=== PATIENT | male | born 1935 | race Caucasian/White ===

== ENCOUNTER 2017-05-05 14:28 | Emergency (ER) | payer MEDICARE, BC ==
--- NOTE | 2017-05-05 15:12 | EDM.PDOC ---
ED HPI GENERAL MEDICAL PROBLEM - General Chief Complaint: Upper Extremity Injury/Pain Stated Complaint: RT SHOULDER Time Seen by Provider: 05/05/17 14:55 Source of Information: Reports: Patient History Limitations: Reports: Other (Poor historian, lack of old records) - History of Present Illness INITIAL COMMENTS - FREE TEXT/NARRATIVE: 81 yo male here with R shoulder pain that has been present for months. Was seen in the last 48 hrs at [facility] and was given a "cortisone shot" in that shoulder. He lifted something this mornng and had worsening of the pain, but it is feeling better now. Has pain meds, but cannot tell me what the name of this med is and does not have it with him. A call to his pharmacy reveals he is taking Tylenol #3 prn pain. Onset: Unknown/Unsure Duration: Week(s):, Chronic Location: Reports: Upper Extremity, Right Quality: Reports: Ache, Dull Severity: Moderate Improves with: Reports: Rest Worsens with: Reports: Movement Context: Reports: Other (pain chronic, uncertain working dx as patient is not able to tell me. ) Associated Symptoms: Reports: No Other Symptoms Treatments G[employer]: Reports: Other (see below) (Cortisone injection, pain meds( unknown at this point).) - Related Data Allergies Allergy/AdvReac Type Severity Reaction Status Date / Time Penicillins Allergy UNKNOWN Verified 05/05/17 15:12 Home Meds: Home Meds Acetaminophen with Codeine [Tylenol with Codeine #3 Tablet] 1 tab PO ASDIRECTED 06/09/16 [History] Flaxseed/Omega3,6,9/Fatty Acid [Flax Seed Oil 1,300 mg Softgel] 2,000 mg PO DAILY 06/09/16 [History] Multivitamin [Multivitamins] 1 tab PO DAILY 06/09/16 [History] Triamcinolone Acetonide [Triamcinolone Acetonide 0.1% Crm] 1 applic TOP BID [History] Acetaminophen/HYDROcodone [Cade 325-5 MG] 1 - 2 tab PO Q6H PRN #20 tab [Rx] Social & Family History - Tobacco Use Smoking Status *Q: Never Smoker - Caffeine Use Caffeine Use: Reports: Coffee - Recreational Drug Use Recreational Drug Use: No Review of Systems - Review of Systems Review Of Systems: See Below Constitutional: Reports: No Symptoms Eyes: Reports: No Symptoms Ears: Reports: No Symptoms Nose: Reports: No Symptoms Mouth/Throat: Reports: No Symptoms Musculoskeletal: Reports: Shoulder Pain (R) Skin: Reports: No Symptoms Neurological: Reports: No Symptoms ED EXAM, GENERAL - Physical Exam Exam: See Below Exam Limited By: No Limitations General Appearance: Alert, WD/WN, No Apparent Distress Extremities: Normal Inspection, Normal Range of Motion, No Pedal Edema, Arm Pain (R shoulder tender in the subacromial bursa, no bony pain. ) Neurological: Alert, Oriented, CN II-XII Intact, Normal Cognition, No Motor/ Sensory Deficits Psychiatric: Normal Affect, Normal Mood Skin Exam: Warm, Dry, Intact, Normal Color, No Rash Lymphatic: No Adenopathy Departure - Departure Time of Disposition: 15:18 Disposition: Home, Self-Care 01 Condition: Good Clinical Impression: Subacromial bursitis of right shoulder joint - Discharge Information Prescriptions: Acetaminophen/HYDROcodone [Cade 325-5 MG] 1 - 2 tab PO Q6H PRN #20 tab PRN Reason: Pain Referrals: PCP,None [Primary Care Provider] - Forms: ED Department Discharge Additional Instructions: Wear sling for support as needed. Use Tylenol #3 for mild pain, substitute Cade for more severe pain as needed. F/U with your provider within the week. You may take ibuprofen 200 mg every 4 hrs with food for added relief as needed.
[2017-05-05 15:40] VITALS: BP 160/76
== END 2017-05-05 15:38 | disposition home or self-care (01) ==
LOC: FB.ED 14:28
DX: M75.51 Bursitis of right shoulder (principal); Z88.0 Allergy status to penicillin
CPT/HCPCS: 99283